=== PATIENT | female | born 1955 | race Caucasian/White ===

== ENCOUNTER 2021-04-24 15:57 | Observation (INO) | payer MEDICARE ==
[2021-04-24 16:32] LABS: #Eosinphils 0.3 10x3/uL (0.0-0.5); #Monocytes 0.5 10x3/uL (0.0-1.1); #Neutrophils 2.5 10x3/uL (1.5-8.4); %Basophils 0.8 % (0.0-2.0); %Eosinophils 6.5 % (0.0-6.0); %Lymphocytes 32.8 % (18.0-47.0); %Monocytes 9.6 % (0.0-10.0); %Neutrophils 49.9 % (40.0-75.0); Hemoglobin 13.9 g/dL (12.0-15.5); Mean Corpuscular HGB CONC 33.4 g/dL (32.0-36.0); Mean Corpuscular Hemoglobin 30.7 pg (27.0-33.0); Mean Corpuscular Volume 91.8 fl (81.6-98.3); Mean Platelet Volume 9.2 fl (7.4-10.4); Platelet Count 255 10x3/uL (150-450); Red Blood Cell (RBC) Count 4.53 10x6/uL (3.90-5.03); White Blood Cell (WBC) Count 5.1 10x3/uL (3.5-10.5)
[2021-04-24 16:49] LABS: ALT (SGPT) 14 U/L (8-55); AST (SGOT) 20 U/L (5-34); Albumin 4.2 g/dL (3.4-4.8); Alkaline Phosphatase 84 U/L (40-110); Anion Gap 15 mmol/L (10-20); BUN (Urea Nitrogen) 10 mg/dL (9.8-20.1); Bilirubin, Total 0.2 mg/dL (0.2-1.2); CK (CPK) 59 U/L (29-168); Calc. Creatinine Clearance 0 mL/min (70-130); Calcium 8.9 mg/dL (7.8-10.44); Carbon Dioxide 23 mmol/L (23-31); Chloride 104 mmol/L (98-107); Glucose 110 mg/dL (80-115); Potassium 3.8 mmol/L (3.5-5.1); Protein, Total 7.2 g/dL (5.8-8.1); Sodium 138 mmol/L (136-145)
[2021-04-24] MEDS ORDERED: Enoxaparin Sodium 60 MG/0.6 ML SYRINGE ONE ×2 (18:34→18:35)
[2021-04-24] MEDS ORDERED: Acetaminophen 650 MG Suppository PR PRN (18:49)
[2021-04-24] MEDS ORDERED: Ondansetron ODT 4 MG TAB PO PRN (18:49)
[2021-04-24] MEDS ORDERED: Acetaminophen 325 MG TAB PO PRN (18:49)
[2021-04-24] MEDS ORDERED: Ondansetron PF 4 MG/2 ML Vial IVP PRN (18:49)
[2021-04-24 19:39] LABS: Cardiac Risk 3.6 (Less than 4.5)
[2021-04-24 22:42] VITALS: BMI 32.9
[2021-04-25] MEDS: Sodium Chloride 0.9% 1,000 ML IV SCH ×2 (01:40→12:05)
[2021-04-25 03:47] LABS: #Eosinphils 0.2 10x3/uL (0.0-0.5); #Monocytes 0.5 10x3/uL (0.0-1.1); #Neutrophils 1.6 10x3/uL (1.5-8.4); %Eosinophils 6.2 % (0.0-6.0); %Lymphocytes 39.2 % (18.0-47.0); %Monocytes 12.4 % (0.0-10.0); %Neutrophils 40.9 % (40.0-75.0); Hemoglobin 12.1 g/dL (12.0-15.5); Mean Corpuscular Hemoglobin 31.1 pg (27.0-33.0); Mean Corpuscular Volume 91.5 fl (81.6-98.3); Mean Platelet Volume 8.9 fl (7.4-10.4); Platelet Count 204 10x3/uL (150-450); Red Blood Cell (RBC) Count 3.89 10x6/uL (3.90-5.03); White Blood Cell (WBC) Count 3.9 10x3/uL (3.5-10.5)
[2021-04-25 03:58] LABS: Anion Gap 10 mmol/L (10-20); BUN (Urea Nitrogen) 10 mg/dL (9.8-20.1); Calc. Creatinine Clearance 103 mL/min (70-130); Carbon Dioxide 24 mmol/L (23-31); Chloride 111 mmol/L (98-107); Glucose 101 mg/dL (80-115); Potassium 3.9 mmol/L (3.5-5.1); Sodium 141 mmol/L (136-145)
[2021-04-25] MEDS ORDERED: Metoprolol Tartrate 25 MG TAB PO SCH (09:00)
[2021-04-25 12:01] VITALS: BP 179/82; TEMP 97.4
[2021-04-25 19:49] LABS: SARS-CoV-2 PCR by NAA Not Detected (NotDetected)
[2021-04-25] MEDS ORDERED: Apixaban 5 MG TAB PO SCH (21:00)
== END 2021-04-25 16:49 | disposition home or self-care (01) ==
LOC: CSHERS 15:57 → CSHTELE 22:32
PROVIDERS: ADMIT Family Medicine; ATTEND Physician Assistant
DX: I48.91 Unspecified atrial fibrillation (principal); E03.9 Hypothyroidism, unspecified; Z79.899 Other long term (current) drug therapy; Z20.822 Contact with and (suspected) exposure to COVID-19
CPT/HCPCS: 71045; 80048; 80061; 82550; 83735; 84484; 85025; 93005; 93306; G0378 ×3; U0003; U0005; 36415; 80053; 84443; 96374; 96375; J1650; J7050